=== PATIENT | female | born 1980 | race Asian ===

== ENCOUNTER 2020-05-10 14:52 | Emergency (ER) | payer BC ==
[2020-05-10] MEDS ORDERED: ONDANSETRON 4 MG/2 ML VIAL ONE (16:29)
[2020-05-10] MEDS ORDERED: MECLIZINE HCL 12.5 MG TAB ONE (16:29)
[2020-05-10] MEDS ORDERED: NA CHLORIDE 0.9% 2,000 ML ONE (16:29)
--- NOTE | 2020-05-10 16:50 | RAD REPORT ---
EXAM DESCRIPTION: CT - Head Brain Wo Cont - 05/10/2020 4:32 pm CLINICAL HISTORY: Dizziness COMPARISON: 2016 TECHNIQUE: Computed axial tomography of the head was obtained. IV contrast was not requested. All CT scans are performed using dose optimization technique as appropriate and may include automated exposure control or mA/KV adjustment according to patient size. FINDINGS: An intracranial bleed is not seen . The ventricles are normal in caliber. No extra-axial fluid collection is noted. Fluid within the sinuses/ mastoids is not seen. IMPRESSION: No acute intracranial abnormality is seen. If patient's symptoms persist MRI of the bra in would be recommended.
[2020-05-10 16:51] LABS: ALT/SGPT 24 U/L (12-78); AST/SGOT 15 U/L (15-37); Albumin 3.9 g/dL (3.4-5.0); Alkaline Phosphatase 80 U/L (45-117); BUN Blood Urea Nitrogen 17 mg/dL (7-18); Bicarbonate 28 mmol/L (21-32); Bilirubin Direct 0.2 mg/dL (0-0.2); Bilirubin Total 0.5 mg/dL (0.2-1.0); Glucose Level 97 mg/dL (74-106); Magnesium 2.2 mg/dL (1.8-2.4); NT PRO-BNP 72 pg/mL (<125); Potassium 3.5 mmol/L (3.5-5.1); Protein, Total 7.8 g/dL (6.4-8.2); Sodium Level 137 mmol/L (136-145); Troponin (Emerg Dept Use Only) < 0.02 ng/mL (0.0-0.045)
[2020-05-10 16:53] LABS: Absolute Lymphocytes (CBC) 1.2 K/uL (0.7-4.9); Basophils % 0.5 % (0-1.3); Hematocrit 41.5 % (36.0-45.0); Lymphocytes % 15.2 % (15.3-44.8); MPV 7.8 fL (7.6-11.3); RBC Red Blood Cell Count 4.58 M/uL (3.86-4.86)
[2020-05-10 16:56] LABS: Protime INR 1.07
[2020-05-10 17:12] LABS: Urine Blood NEGATIVE (NEG); Urine Glucose NEGATIVE (NEG); Urine Protein NEGATIVE (NEG); Urine Specific Gravity 1.025 (1.005-1.030)
--- NOTE | 2020-05-10 17:26 | RAD REPORT ---
EXAM DESCRIPTION: Yolanda Single View05/10/2020 5:06 pm CLINICAL HISTORY: Weakness/dizziness COMPARISON: none FINDINGS: The lungs appear clear of acute infiltrate. The heart is normal size IMPRESSION: No acute abnormalities displayed
[2020-05-10 17:34] LABS: Creatine Phosphokinase 93 U/L (26-192)
[2020-05-10] MEDS ORDERED: DIAZEPAM 10 MG/2 ML INJ SYRINGE ONE (17:59)
--- NOTE | 2020-05-10 18:12 | ER ---
Nurse's Notes [facility] Name: Liana Mack Age: 40 yrs Sex: Female : 1980 Arrival Date: 05/10/2020 Time: 14:55 Bed 5 Private MD: Jovita Castañeda H Diagnosis: Acute Otitis Media;Vertigo Presentation: 05/10 15:00 Chief complaint: Patient states: Shaky, dizzy for 1.5 hours. Was doing computer work ll1 when this started. No N/V/D. No cough/congestion. Fingerstick 92 after triage complete. Coronavirus screen: Client denies travel out of the [place] in the last 14 days. 04/27/20 Got sick after trip to [place]. Covids/flu negative. Ebola Screen: Patient denies travel to an Ebola-affected area in the 21 days before illness onset. Initial Sepsis Screen: Does the patient meet any 2 criteria? No. Patient's initial sepsis screen is negative. Does the patient have a suspected source of infection? No. Patient's initial sepsis screen is negative. Risk Assessment: Do you want to hurt yourself or someone else? Patient reports no desire to harm self or others. Onset of symptoms was May 10, 2020. 15:00 Method Of Arrival: Ambulatory ll1 15:00 Acuity: WILL 3 ll1 Historical: - Allergies: 15:00 No Known Allergies; ll1 - PMHx: 15:00 Infertility; ll1 - PSHx: 15:00 Tubal ligation; cosmetic sx; ll1 - Immunization history:: Flu vaccine is not up to date. - Social history:: Smoking status: Patient denies any tobacco usage or history of. Screenin:02 Abuse screen: Denies threats or abuse. Denies injuries from another. Nutritional hb screening: No deficits noted. Tuberculosis screening: No symptoms or risk factors identified. Fall Risk Total Mclaughlin Fall Scale indicates Low Risk Score (25-44 pts). Fall prevention measures have been instituted. Side Rails Up X 2 Frequent Obs/Assesments occuring As available Patient and Family Educated on Fall Prevention Program and strategies. Assessment: 16:02 General: Appears in no apparent distress. Behavior is calm, cooperative. Pain: Denies hb pain. Neuro: Level of Consciousness is awake, alert, obeys commands, Oriented to person, place, time, situation, Reports dizziness. Cardiovascular: Capillary refill < 3 seconds Patient's skin is warm and dry. Rhythm is regular. Respiratory: Respiratory effort is even, unlabored, Respiratory pattern is regular, symmetrical. GI: No signs and/or symptoms were reported involving the gastrointestinal system. : No signs and/or symptoms were reported regarding the genitourinary system. EENT: No signs and/or symptoms were reported regarding the EENT system. Derm: Skin is pink, warm \T\ dry. Musculoskeletal: No signs and/or symptoms reported regarding the musculoskeletal system. 17:00 Reassessment: Patient appears in no apparent distress at this time. Patient and/or hb family updated on plan of care and expected duration. Pain level reassessed. Patient is alert, oriented x 3, equal unlabored respirations, skin warm/dry/pink. Vital Signs: 15:00 BP 135 / 100; Pulse 79; Resp 16; Temp 98.1; Pulse Ox 100% ; Weight 61.23 kg; Height 5 ll1 ft. 4 in. (162.56 cm); Pain 0/10; 17:00 BP 132 / 88; Pulse 76; Resp 15; Pulse Ox 99% ; hb 15:00 Body Mass Index 23.17 (61.23 kg, 162.56 cm) ll1 ED Course: 14:55 Patient arrived in ED. mr 14:56 Jovita Castañeda DO is Private Physician. mr 14:59 Arm band placed on. ll1 15:03 Triage completed. 1 15:51 George Pringle PA is PHCP. [facility] 15:51 Jason Avila MD is Attending Physician. [facility] 16:01 Deja Rodríguez RN is Primary Nurse. ss 16:02 Patient has correct armband on for positive identification. Bed in low position. Call hb light in reach. 16:13 EKG done, by ED staff, reviewed by George JULIEN. em1 16:27 Initial lab(s) drawn, by or, sent to lab. Inserted saline lock: 20 gauge in left em1 antecubital area, using aseptic technique. Blood collected. 16:31 CT Head Brain wo Cont In Process Unspecified. EDMS 17:06 XRAY Chest (1 view) In Process Unspecified. EDMS 17:37 PT-INR Sent. sv 17:37 NT PRO-BNP Sent. sv 17:37 LFT's Sent. sv 17:37 Magnesium Sent. sv 17:37 CBC with Diff Sent. sv 17:37 Basic Metabolic Panel Sent. sv 18:10 Padmini Gilmore MD is Referral Physician. [facility] 18:30 No provider procedures requiring assistance completed. IV discontinued, intact, ss bleeding controlled, No redness/swelling at site. Pressure dressing applied. Administered Medications: 16:22 Drug: Meclizine 25 mg Route: PO; hb 17:00 Follow up: Response: No adverse reaction; No change in condition ss 16:22 Drug: Zofran (Ondansetron) 4 mg Route: IVP; Site: left antecubital; hb 16:56 Follow up: Response: No adverse reaction hb 16:22 Drug: NS 0.9% 1000 ml Route: IV; Rate: 1 bolus; Site: left antecubital; hb 16:22 Drug: NS 0.9% 1000 ml Route: IV; Rate: 1 bolus; Site: left antecubital; hb 17:30 Follow up: IV Status: Completed infusion ss 17:49 Drug: Valium 2 mg Route: IVP; Site: left antecubital; hb 18:00 Follow up: Response: No adverse reaction; Marked relief of symptoms ss Outcome: 18:11 Discharge ordered by MD. [facility] 18:30 Discharged to home ambulatory. 18:30 Condition: good 18:30 Discharge instructions given to patient, Instructed on discharge instructions, follow up and referral plans. medication usage, Demonstrated understanding of instructions, follow-up care, medications, Prescriptions given X 2. 18:38 Patient left the ED. sv Signatures: Dispatcher [employer] EDMS Padmini Bass, RN RN George Pringle PA PA [facility] Ritchie, Kassandra mr Mau, Dick em1 Deja Rodríguez RN RN Anastasia Moore RN RN hb Lewis, Lynsay RN RN ll1 Corrections: (The following items were deleted from the chart) 15:07 15:00 Chief complaint: Patient states: Shaky, dizzy for 1.5 hours. Was doing computer ll1 work when this started. No N/V/D. No cough/congestion. ll1
--- NOTE | 2020-05-10 18:12 | EDPHYS ---
Physician Documentation [facility] Name: Liana Mack Age: 40 yrs Sex: Female : 1980 Arrival Date: 05/10/2020 Time: 14:55 Bed 5 Private MD: Jovita Castañeda H ED Physician Jason Avila HPI: 05/10 15:52 This 40 yrs old Female presents to ER via Ambulatory with complaints of jmm Dizziness, Shaking. 15:52 The patient presents with dizziness, sense of spinning. Onset: The symptoms/episode jmm began/occurred acutely, 10 day(s) ago. Modifying factors: The symptoms are alleviated by nothing, the symptoms are aggravated by movement of head, changing position. Associated signs and symptoms:. This is a 40 year old female with no chronic medical conditions that presents to the ED with complaints of dizziness which began after a trip to [place]. Was initially evaluated for covid and negative basic labs. Patient states she continues to have dizziness, worse with movement along with a sense of lightheadedness and near syncope. Denies chest pain. States having a tingling sensation in the left foot. Patient also has complaints of left ear pain which was diagnosed as eczema and will be seeing a sample finisher for further evaluation. . Historical: - Allergies: 15:00 No Known Allergies; ll1 - PMHx: 15:00 Infertility; ll1 - PSHx: 15:00 Tubal ligation; cosmetic sx; ll1 - Immunization history:: Flu vaccine is not up to date. - Social history:: Smoking status: Patient denies any tobacco usage or history of. ROS: 15:52 Constitutional: Negative for fever, chills, and weight loss, Cardiovascular: Negative jmm for chest pain, palpitations, and edema, Respiratory: Negative for shortness of breath, cough, wheezing, and pleuritic chest pain. 15:52 Neuro: Positive for dizziness, near syncope. 15:52 All other systems are negative. Exam: 15:52 Constitutional: This is a well developed, well nourished patient who is awake, alert, jmm and in no acute distress. Head/Face: atraumatic. 15:52 ENT: Moist Mucus Membranes Neck: Trachea midline, Supple Chest/axilla: Normal chest wall appearance and motion. Cardiovascular: Regular rate and rhythm. No edema appreciated Respiratory: Normal respirations, no respiratory distress appreciated Abdomen/GI: Non distended, soft Back: Normal ROM 15:52 Skin: General appearance color normal MS/ Extremity: Moves all extremities, no obvious deformities appreciated, no edema noted to the lower extremities 15:52 Eyes: Extraocular movements: intact throughout, Nystagmus: nystagmus with fast component noted. 15:52 ENT: TM's: bulging, on the left, erythema, that is moderate, on the left. 15:52 Neuro: Orientation: is normal, Mentation: is normal, Memory: is normal, Cerebellar function: normal finger to nose testing, Motor: is normal. 16:41 ECG was reviewed by the Attending Physician. [facility] Vital Signs: 15:00 BP 135 / 100; Pulse 79; Resp 16; Temp 98.1; Pulse Ox 100% ; Weight 61.23 kg; Height 5 ll1 ft. 4 in. (162.56 cm); Pain 0/10; 17:00 BP 132 / 88; Pulse 76; Resp 15; Pulse Ox 99% ; hb 15:00 Body Mass Index 23.17 (61.23 kg, 162.56 cm) ll1 MDM: 16:04 Patient medically screened. [facility] 18:06 Data reviewed: vital signs, nurses notes. Counseling: I had a detailed discussion with [facility] the patient and/or guardian regarding: the historical points, exam findings, and any diagnostic results supporting the discharge/admit diagnosis, lab results, radiology results, the need for outpatient follow up, to return to the emergency department if symptoms worsen or persist or if there are any questions or concerns that arise at home. ED course: Symptoms have decreased in the ED. PE findings most likely vertigo. Patient advised to follow up with ENT for further evaluation. Patient understood and agrees with the plan of care. . 02 15:17 Order name: Glucose, Ancillary Testing; Complete Time: 15:52 [facility] 05/10 16:05 Order name: Basic Metabolic Panel [facility] 05/10 16:05 Order name: CBC with Diff [facility] 05/10 16:05 Order name: LFT's [facility] 05/10 16:05 Order name: Magnesium [facility] 05/10 16:05 Order name: NT PRO-BNP [facility] 05/10 16:05 Order name: PT-INR [facility] 05/10 16:05 Order name: Troponin (emerg Dept Use Only); Complete Time: 17:39 m 05/10 16:05 Order name: D-Dimer; Complete Time: 17:13 m 05/10 16:06 Order name: Basic Metabolic Panel; Complete Time: 17:39 EDMS 05/10 16:06 Order name: CBC with Automated Diff; Complete Time: 17:13 EDMS 05/10 16:06 Order name: Liver (Hepatic) Function; Complete Time: 17:39 EDMS 05/10 16:06 Order name: Magnesium; Complete Time: 17:39 EDMS 05/10 16:06 Order name: NT PRO-BNP; Complete Time: 17:39 EDMS 05/10 16:05 Order name: XRAY Chest (1 view); Complete Time: 17:39 m 05/10 16:05 Order name: EKG; Complete Time: 16:07 [facility] 05/10 16:05 Order name: Cardiac monitoring; Complete Time: 16:27 [facility] 05/10 16:05 Order name: EKG - Nurse/Tech; Complete Time: 16:14 [facility] 05/10 16:05 Order name: IV Saline Lock; Complete Time: 16:27 m 05/10 16:06 Order name: CT Head Brain wo Cont; Complete Time: 17:13 [facility] 05/10 16:06 Order name: Protime (+INR); Complete Time: 17:13 EDMS 05/10 17:00 Order name: Urine Dipstick--Ancillary (enter results) 05/10 17:00 Order name: Urine --Ancillary (enter results) 05/10 17:22 Order name: Creatine Phosphokinase; Complete Time: 17:39 EDMS 05/10 16:05 Order name: Labs collected and sent; Complete Time: 16:27 [facility] 05/10 16:05 Order name: O2 Per Protocol; Complete Time: 16:27 [facility] 05/10 16:05 Order name: O2 Sat Monitoring; Complete Time: 16:27 [facility] 05/10 16:36 Order name: Urine Dipstick-Ancillary (obtain specimen); Complete Time: 16:56 jmm EC:41 Rate is 78 beats/min. Rhythm is regular. QRS [place] is Normal. IA interval is normal. QRS jmm interval is normal. QT interval is normal. No Q waves. T waves are Normal. No ST changes noted. Reviewed by me. Administered Medications: 16:22 Drug: Meclizine 25 mg Route: PO; hb 17:00 Follow up: Response: No adverse reaction; No change in condition ss 16:22 Drug: Zofran (Ondansetron) 4 mg Route: IVP; Site: left antecubital; hb 16:56 Follow up: Response: No adverse reaction hb 16:22 Drug: NS 0.9% 1000 ml Route: IV; Rate: 1 bolus; Site: left antecubital; hb 16:22 Drug: NS 0.9% 1000 ml Route: IV; Rate: 1 bolus; Site: left antecubital; hb 17:30 Follow up: IV Status: Completed infusion ss 17:49 Drug: Valium 2 mg Route: IVP; Site: left antecubital; hb 18:00 Follow up: Response: No adverse reaction; Marked relief of symptoms ss Disposition: 05/11 06:02 Co-signature as Attending Physician, Jason Avila MD I agree with the assessment and kdr plan of care. Disposition: 05/10/20 18:11 Discharged to Home. Impression: Acute Otitis Media, Vertigo. - Condition is Stable. - Discharge Instructions: Otitis Media, Adult, Vertigo. - Prescriptions for Augmentin 875- 125 mg Oral Tablet - take 1 tablet by ORAL route every 12 hours for 10 days; 20 tablet. Valium 2 mg Oral Tablet - take 1 tablet by ORAL route every 8 hours As needed; 20 tablet. - Medication Reconciliation Form, Thank You Letter, Antibiotic Education, Prescription Opioid Use form. - Follow up: Padmini Gilmore MD; When: 2 - 3 days; Reason: Recheck today's complaints, Continuance of care, Re-evaluation by your physician. Signatures: Dispatcher [employer] EDPA Padmini Bass, RN Jason Hernandez MD MD kdr Mickail, Joel, PA PA jmm Baxter, Heather, RN RN hb Lewis, Lynsay, RN RN ll1 Deja Rodríguez RN ss Corrections: (The following items were deleted from the chart) 05/10 17:23 17:19 CREATINE PHOSPHOKINASE+[id number].LAB.BRZ ordered. EDPA EDMS 18:38 18:11 05/10/2020 18:11 Discharged to Home. Impression: Acute Otitis Media; Vertigo. sv Condition is Stable. Forms are Medication Reconciliation Form, Thank You Letter, Antibiotic Education, Prescription Opioid Use. Follow up: Padmini Gilmore; When: 2 - 3 days; Reason: Recheck today's complaints, Continuance of care, Re-evaluation by your physician. jarrett
[2020-05-10 18:52] VITALS: TEMP 98.1
[2020-05-10 18:53] VITALS: BP 132/88; O2SAT 99
== END 2020-05-10 18:38 | disposition home or self-care (01) ==
LOC: ER 14:52
DX: H66.92 Otitis media, unspecified, left ear (principal)
CPT/HCPCS: 96361; 93005; 85025; 80048; 36415; 83735; 82550; 81025; 85610; 82947; 85379; 80076; 81003; 84484; 83880; 70450; 71045; 96375; 96374; 99284; J3360; J7030; J2405